=== PATIENT | female | born 1960 | race Caucasian/White ===

== ENCOUNTER 2019-08-26 14:16 | Inpatient (IN) ==
[2019-08-26] MEDS ORDERED: DILTIAZEM 25 MG/5 ML VIAL IV ONE (14:57)
[2019-08-26] MEDS ORDERED: dilTIAZem Drip 125 MG/125 ML PREMIX IV ONE (15:11)
[2019-08-26] MEDS ORDERED: ASPIRIN 325 MG TABLET PO STA (15:31)
[2019-08-26 15:48] LABS: Basophils % 0.3 % (0.0-0.8); Eosinophils # 0.1 10*3/uL (0.0-0.87); Eosinophils % 0.6 % (0.00-10.9); Hematocrit 45.8 VOL% (35.7-47.0); Hemoglobin 14.2 GM/DL (12.0-16.0); Immature Granulocytes % 0.3 %; Immature Granulocytes Absolute 0.04 #; Lymphocytes % 17.5 % (21.3-54.2); Mean Platelet Volume 12.7 FL (9.6-12.0); Monocytes % 6.5 % (1.7-12.7); Neutrophils % 74.8 % (38.7-73.9); Platelet Count 199 T/CUMM (130-400); Red Blood Count 4.87 MC/CUMM (3.8-5.5); White Blood Count 11.5 T/CUMM (4-12)
[2019-08-26 16:01] LABS: Albumin 3.8 G/DL (3.4-5.0); Bilirubin,Total 1.5 MG/DL (0.2-1.0); Calcium 8.9 MG/DL (8.5-10.1); Thyroid Stimulating Hormone 2.96 uIU/ml (0.358-3.74); Total Protein 7.3 G/DL (6.4-8.3)
[2019-08-26] MEDS ORDERED: ONDANSETRON 4 MG/2 ML VIAL IV PRN (17:32)
[2019-08-26] MEDS ORDERED: ACETAMINOPHEN 325 MG TABLET PO PRN (17:32)
[2019-08-26] MEDS ORDERED: POTASSIUM CHLORIDE 20 MEQ TABLET PO PRN (18:02)
[2019-08-26] MEDS ORDERED: MAGNESIUM SULF RIDER 2 GM in PREMIX 1 EACH IV PRN (18:02)
[2019-08-26] MEDS ORDERED: MAGNESIUM SULF RIDER 4 GM in PREMIX 1 EACH IV PRN (18:02)
[2019-08-26] MEDS ORDERED: DIGOXIN 0.25 MG TABLET PO ONE (18:22)
[2019-08-26] MEDS ORDERED: DIGOXIN 0.5 MG/2 ML AMP IV ONE (18:22)
[2019-08-26] MEDS ORDERED: NIFEdipine 10 MG CAPSULE PO PRN (18:24)
[2019-08-26] MEDS ORDERED: ALBUTEROL/IPRATROPIUM 3 ML NEB RESP TX PRN (18:25)
[2019-08-26] MEDS ORDERED: DILTIAZEM 50 MG/10 ML VIAL IV ONE (19:05)
[2019-08-26] MEDS: dilTIAZem Drip 125 MG/125 ML PREMIX IV SCH (19:15)
[2019-08-26] MEDS ORDERED: dilTIAZem Drip 125 MG/125 ML PREMIX IV SCH (19:30)
[2019-08-26] MEDS: METOPROLOL TARTRATE 50 MG TABLET PO SCH (22:10)
[2019-08-26] MEDS: APIXABAN 5 MG TABLET PO SCH (22:11)
[2019-08-27 05:44] LABS: Basophils % 0.4 % (0.0-0.8); Eosinophils # 0.1 10*3/uL (0.0-0.87); Eosinophils % 1.1 % (0.00-10.9); Hematocrit 41.5 VOL% (35.7-47.0); Hemoglobin 12.7 GM/DL (12.0-16.0); Immature Granulocytes % 0.4 %; Immature Granulocytes Absolute 0.04 #; Lymphocytes # 2.3 10*3/uL (1.4-4.0); Lymphocytes % 22.1 % (21.3-54.2); Mean Corpuscular HGB Conc 30.6 GM/DL (32-36); Mean Corpuscular Volume 95.4 FL (87-102); Mean Platelet Volume 11.9 FL (9.6-12.0); Monocytes % 8.8 % (1.7-12.7); Neutrophils % 67.2 % (38.7-73.9); Platelet Count 172 T/CUMM (130-400); Red Blood Count 4.35 MC/CUMM (3.8-5.5); Red Cell Distribution Width 14.9 % (9.3-17.3); White Blood Count 10.2 T/CUMM (4-12)
[2019-08-27] MEDS: PANTOPRAZOLE 40 MG TABLET PO SCH (09:50)
[2019-08-27] MEDS: APIXABAN 5 MG TABLET PO SCH ×2 (09:50→21:26)
[2019-08-27] MEDS: POLYETHYLENE GLYCOL POWDER 17 GM PACK PO SCH (09:50)
[2019-08-27] MEDS: METOPROLOL TARTRATE 50 MG TABLET PO SCH (09:55)
[2019-08-27 10:38] LABS: Calcium 8.6 MG/DL (8.5-10.1)
[2019-08-27] MEDS: DIGOXIN 0.25 MG TABLET PO SCH (13:17)
[2019-08-27] MEDS: dilTIAZem Drip 125 MG/125 ML PREMIX IV SCH (15:44)
[2019-08-27] MEDS: METOPROLOL TARTRATE 100 MG TABLET PO SCH (21:27)
[2019-08-28] MEDS: POLYETHYLENE GLYCOL POWDER 17 GM PACK PO SCH (09:05)
[2019-08-28] MEDS: APIXABAN 5 MG TABLET PO SCH ×2 (09:05→21:13)
[2019-08-28] MEDS: PANTOPRAZOLE 40 MG TABLET PO SCH (09:05)
[2019-08-28] MEDS: METOPROLOL TARTRATE 100 MG TABLET PO SCH ×2 (09:05→21:13)
[2019-08-28] MEDS: DIGOXIN 0.25 MG TABLET PO SCH (12:42)
[2019-08-28] MEDS: dilTIAZem Drip 125 MG/125 ML PREMIX IV SCH (15:25)
[2019-08-29 04:56] LABS: Basophils % 0.4 % (0.0-0.8); Eosinophils # 0.2 10*3/uL (0.0-0.87); Eosinophils % 2.3 % (0.00-10.9); Hematocrit 41.1 VOL% (35.7-47.0); Hemoglobin 12.5 GM/DL (12.0-16.0); Immature Granulocytes % 0.4 %; Immature Granulocytes Absolute 0.03 #; Lymphocytes # 1.8 10*3/uL (1.4-4.0); Lymphocytes % 23.9 % (21.3-54.2); Mean Corpuscular HGB Conc 30.4 GM/DL (32-36); Mean Corpuscular Volume 95.1 FL (87-102); Mean Platelet Volume 11.4 FL (9.6-12.0); Monocytes % 8.7 % (1.7-12.7); Neutrophils % 64.3 % (38.7-73.9); Platelet Count 171 T/CUMM (130-400); Red Blood Count 4.32 MC/CUMM (3.8-5.5); Red Cell Distribution Width 14.6 % (9.3-17.3); White Blood Count 7.7 T/CUMM (4-12)
[2019-08-29 05:15] LABS: Calcium 8.3 MG/DL (8.5-10.1); Osmolality,Calculated 282.1 MOS/KG (273-304)
[2019-08-29] MEDS ORDERED: SODIUM CHLORIDE 0.9% 1,000 ML IV SCH (06:00)
[2019-08-29] MEDS: PANTOPRAZOLE 40 MG TABLET PO SCH (08:55)
[2019-08-29] MEDS: METOPROLOL TARTRATE 100 MG TABLET PO SCH ×2 (08:55→21:23)
[2019-08-29] MEDS ORDERED: ALBUTEROL/IPRATROPIUM 3 ML NEB RESP TX STA (11:37)
[2019-08-29] MEDS ORDERED: LIDOCAINE 2% 5 ML VIAL ONE (12:50)
[2019-08-29] MEDS ORDERED: PROPOFOL 200 MG/20 ML VIAL IV ONE (12:50)
[2019-08-29] MEDS ORDERED: AMIODARONE 200 MG TABLET PO STA (12:52)
[2019-08-29] MEDS ORDERED: APIXABAN 5 MG TABLET PO ONE (13:13)
[2019-08-29] MEDS: POLYETHYLENE GLYCOL POWDER 17 GM PACK PO SCH (13:52)
[2019-08-29] MEDS: AMIODARONE 200 MG TABLET PO SCH (20:40)
[2019-08-29] MEDS: APIXABAN 5 MG TABLET PO SCH (21:23)
[2019-08-30 05:25] LABS: Basophils % 0.5 % (0.0-0.8); Eosinophils # 0.2 10*3/uL (0.0-0.87); Eosinophils % 2.6 % (0.00-10.9); Hematocrit 40.2 VOL% (35.7-47.0); Hemoglobin 12.3 GM/DL (12.0-16.0); Immature Granulocytes % 0.4 %; Immature Granulocytes Absolute 0.03 #; Lymphocytes # 1.9 10*3/uL (1.4-4.0); Lymphocytes % 24.4 % (21.3-54.2); Mean Corpuscular HGB Conc 30.6 GM/DL (32-36); Mean Corpuscular Volume 95.5 FL (87-102); Mean Platelet Volume 11.5 FL (9.6-12.0); Monocytes % 8.6 % (1.7-12.7); Neutrophils % 63.5 % (38.7-73.9); Platelet Count 171 T/CUMM (130-400); Red Blood Count 4.21 MC/CUMM (3.8-5.5); Red Cell Distribution Width 14.6 % (9.3-17.3); White Blood Count 7.6 T/CUMM (4-12)
[2019-08-30 05:53] LABS: Calcium 8.9 MG/DL (8.5-10.1); Osmolality,Calculated 291.4 MOS/KG (273-304)
[2019-08-30] MEDS ORDERED: ASPIRIN EC 81 MG TABLET PO SCH (09:00)
[2019-08-30] MEDS: AMIODARONE 200 MG TABLET PO SCH (09:25)
[2019-08-30] MEDS: POLYETHYLENE GLYCOL POWDER 17 GM PACK PO SCH (09:25)
[2019-08-30] MEDS: APIXABAN 5 MG TABLET PO SCH (09:26)
[2019-08-30] MEDS: METOPROLOL TARTRATE 100 MG TABLET PO SCH (09:26)
[2019-08-30] MEDS: PANTOPRAZOLE 40 MG TABLET PO SCH (09:26)
[2019-08-30 11:09] VITALS: BP 108/56
== END 2019-08-30 16:40 | disposition home or self-care (01) | DRG 309 ==
LOC: N.EDINP 14:16 → N.ED 14:16 → N.TELEN 18:21
PROVIDERS: ADMIT Internal Medicine Geriatric Medicine; ATTEND Internal Medicine Geriatric Medicine